=== PATIENT | female | born 1945 | race Caucasian/White ===

== ENCOUNTER 2021-01-10 06:26 | Day surgery (SDC) | payer OTHER, SELFPAY ==
[~2021-01-10] VITALS: Ht 157.5 cm; Wt 90.7 kg
[2021-01-10] MEDS ORDERED: LIDOCAINE 2% 100 MG/5 ML UJET TP ONE (07:53)
[2021-01-10] MEDS ORDERED: diphenhydrAMINE 50 MG/ML VIAL ONE (07:53)
[2021-01-10] MEDS ORDERED: MIDAZOLAM 2 MG/2 ML VIAL ONE (07:53)
[2021-01-10] MEDS ORDERED: fentaNYL citrate 0.05 MG/ML VIAL ONE (07:53)
[2021-01-10] MEDS ORDERED: MIDAZOLAM 2 MG/2 ML VIAL IVP ONE (09:30)
[2021-01-10] MEDS ORDERED: FENTANYL C 0.1 MG/HR PATCH TD SCH (09:30)
[2021-01-10] MEDS ORDERED: fentaNYL citrate 0.05 MG/ML VIAL IVP ONE (11:10)
== END 2021-01-10 09:10 | disposition home or self-care (01) ==
LOC: MDS 06:26 → MMU 06:28 → MDS 09:10
PROVIDERS: ATTEND Internal Medicine Gastroenterology
DX: Z12.11 Encounter for screening for malignant neoplasm of colon (principal); K63.5 Polyp of colon; I10 Essential (primary) hypertension; E78.5 Hyperlipidemia, unspecified; E11.9 Type 2 diabetes mellitus without complications; K59.00 Constipation, unspecified; Z79.899 Other long term (current) drug therapy; Z20.822 Contact with and (suspected) exposure to COVID-19
CPT/HCPCS: 45385; 82948; 87426; J1200; J2250; J3010

== ENCOUNTER 2021-09-19 09:02 | Day surgery (SDC) | payer OTHER ==
[~2021-09-19] VITALS: Ht 157.5 cm; Wt 106.1 kg
[2021-09-19] MEDS ORDERED: diphenhydrAMINE 50 MG/ML VIAL ONE (10:18)
[2021-09-19] MEDS ORDERED: fentaNYL citrate 0.05 MG/ML VIAL ONE (10:18)
[2021-09-19] MEDS ORDERED: MIDAZOLAM 5 MG/5 ML VIAL ONE (10:19)
[2021-09-19] MEDS ORDERED: MIDAZOLAM 2 MG/2 ML VIAL IVP ONE (11:05)
[2021-09-19] MEDS ORDERED: fentaNYL citrate 0.05 MG/ML VIAL IVP ONE (11:05)
== END 2021-09-19 11:20 | disposition home or self-care (01) ==
LOC: MMU 09:02 → MDS 09:02
PROVIDERS: ATTEND Internal Medicine Gastroenterology
DX: D64.9 Anemia, unspecified (principal); K29.70 Gastritis, unspecified, without bleeding; K59.00 Constipation, unspecified; I10 Essential (primary) hypertension; E11.9 Type 2 diabetes mellitus without complications; E78.5 Hyperlipidemia, unspecified; C71.9 Malignant neoplasm of brain, unspecified; Z20.822 Contact with and (suspected) exposure to COVID-19
CPT/HCPCS: 43239; 87426; 88305; 88312; 88313; 88342; J2250; J3010; J1200